=== PATIENT | female | born 1960 | race Two or more races ===

== ENCOUNTER 2023-06-25 11:15 | Inpatient (IN) | payer MEDICAID ==
[2023-06-25] VITALS (14 sets, daily range): BP systolic 79–130; BP diastolic 37–82; PULSE 68–98; RESP 12–23; TEMP 97.7–97.9; O2SAT 95–99
[~2023-06-25] VITALS: Ht 152.4 cm; Wt 99.7 kg
[2023-06-25] MEDS: PHENYLEPHRINE HCL 10 MG/ML VL ONE (08:20)
[~2023-06-25 11:15] MED LIST: ALPR0.5T7 PO; ASPI-543 PO; FURO20TA3 PO; IBUP-1456 PO; LISI20TA56 PO; MELO15TA29 PO; METF-370 PO; METO25TA5 PO; POTA-228 PO; ROSU20TA14 PO
[2023-06-25] MEDS: MIDAZOLAM HCL 2MG/2ML 2ml VIAL (1mg/ml) ONE (12:27)
[2023-06-25] MEDS: fentaNYL CITRATE 100 MCG/2 ML VL ONE (12:27)
[2023-06-25] MEDS: GLYCOPYRROLATE 0.2 MG/ML 1ML VIAL ONE ×2 (12:47→13:54)
[2023-06-25] MEDS: IODIXANOL 320MG/ML 100ML BTL IV ONE (12:55)
[2023-06-25] MEDS: HEPARIN IN NS 1000Units/500mL 1,500 ML ONE (12:55)
[2023-06-25] MEDS: LIDOCAINE 2%HCL (LOCAL ANESTH.) INJ 20ML MDV ONE (12:55)
[2023-06-25] MEDS: ANGIOMAX 250 MG VIAL IV ONE (13:47)
[2023-06-25] MEDS: SODIUM CHL 0.9% 50 ML ONE (13:48)
[2023-06-25] MEDS: IOHEXOL 350 MG/ML 100ML IJ ONE (13:53)
[2023-06-25] MEDS: ATROPINE SULF 1 MG/10ml SYR ONE (14:05)
[2023-06-25] MEDS: ASPirin 325 MG TAB ONE ×2 (14:24→14:25)
[2023-06-25] MEDS: CLOPIDOGREL BISULFATE 75 MG TAB ONE ×2 (14:24→14:25)
[2023-06-25] MEDS: SODIUM CHLORIDE 0.9% 1,000 ML IV SCH (14:30)
[2023-06-25] MEDS: ACETAMINOPHEN 325 MG TAB PO ONE (14:31)
[2023-06-25] MEDS ORDERED: CLOPIDOGREL BISULFATE 75 MG TAB PO ONE (15:00)
[2023-06-25] MEDS ORDERED: MORPHINE SULFATE INJ 2 MG/ml SYRG IV PRN ×2 (15:45)
[2023-06-25] MEDS ORDERED: ONDANSETRON HCL 4 MG/2 ML VIAL IV PRN (15:45)
[2023-06-25] MEDS ORDERED: ACETAMINOPHEN 325 MG TAB PO PRN (15:45)
[2023-06-25] MEDS ORDERED: NITROGLYCERIN 0.4 MG SL TAB SL PRN (15:45)
[2023-06-25] MEDS: SUMAtriptan SUCCINATE 25 MG TAB PO ONE (16:16)
[2023-06-25 18:43] LABS: Basophils # (auto) 0 10 ^3/uL (0-0.2); Basophils % (auto) 0.4 % (0.0-2.0); Eosinophils # (auto) 0.1 10 ^3/uL (0-0.8); Eosinophils % (auto) 1.4 % (0.0-7.0); Hemoglobin 13.7 g/dL (12.2-16.2); Lymphocytes # (auto) 1.8 10 ^3/uL (0.4-5.4); Lymphocytes % (auto) 26.1 % (10.0-50.0); Mean Corpuscular Hemoglobin 30.5 pg (28.0-32.0); Mean Corpuscular Hgb Conc. 33.4 g/dL (32.0-36.0); Mean Corpuscular Volume 91.2 fL (80.0-100.0); Monocytes # (auto) 0.4 10 ^3/uL (0-1.3); Monocytes % (auto) 5.4 % (0.0-12.0); Neutrophils # (auto) 4.7 10 ^3/uL (1.6-8.6); Neutrophils % (auto) 66.7 % (37.0-80.0); Red Cell Distribution Width 12.8 % (11.8-14.3); White Blood Cell 7.1 10^3/uL (4.4-10.8)
[2023-06-25 19:01] LABS: Chloride 106 mmol/L (98-107); Sodium 138 mmol/L (136-145)
[2023-06-25 19:02] LABS: Anion Gap 9 (5-15); Calcium 9.4 mg/dL (8.5-10.1); Carbon Dioxide 23 mmol/L (20-30)
[2023-06-25 19:07] LABS: BUN/Creatinine Ratio 10.3 (10.0-20.0); Blood Urea Nitrogen 8 mg/dL (9-23); Glucose 149 mg/dL (74-106)
[2023-06-25] MEDS: HYDROcodone-ACET 5/325MG TAB PO PRN (19:37)
[2023-06-26] VITALS (7 sets, daily range): BP systolic 105–130; BP diastolic 46–64; PULSE 66–81; RESP 16–20; TEMP 36.8; O2SAT 93–97
[2023-06-26] MEDS: CLOPIDOGREL BISULFATE 75 MG TAB PO SCH (09:58)
[2023-06-26] MEDS: ASPirin 81 mg TAB PO SCH (09:58)
[2023-06-26] MEDS ORDERED: ASPI-325 PO (16:21)
[2023-06-26] MEDS ORDERED: CLOP75TA70 PO (16:21)
== END 2023-06-26 17:25 | disposition home or self-care (01) | DRG 30 ==
LOC: CATH 11:15 → TELE 13:56 → TELE-WESTW 17:19
PROVIDERS: ADMIT Internal Medicine; ATTEND Internal Medicine
PROC: 037L3DZ Dilation of Left Internal Carotid Artery with Intraluminal Device, Percutaneous Approach (ICD-10-PCS; principal; 2023-06-25)
PROC: B2111ZZ Fluoroscopy of Multiple Coronary Arteries using Low Osmolar Contrast (ICD-10-PCS; 2023-06-25)
DX: I65.22 Occlusion and stenosis of left carotid artery (principal); I95.9 Hypotension, unspecified; E78.5 Hyperlipidemia, unspecified; G43.909 Migraine, unspecified, not intractable, without status migrainosus; I10 Essential (primary) hypertension; F41.9 Anxiety disorder, unspecified; I45.9 Conduction disorder, unspecified; Z79.899 Other long term (current) drug therapy
CPT/HCPCS: 36223; 36415; 37215; 80048; 85025; 97163; 99152; G0378; J2250; Q9967